=== PATIENT | male | born 1975 | race Caucasian/White ===

== ENCOUNTER → 2017-09-04 | Outpatient (CLI) | payer BC ==
[2017-09-04 12:44] LABS: CHOLESTEROL/HDL RATIO 3.6
[2017-09-06 01:43] LABS: CHLAMYDIA TRACH RNA*** NOT DETECTED (NOT DETECTED); GC (NEIS GONORRHOEAE)RNA** NOT DETECTED (NOT DETECTED)
== END | disposition home or self-care (01) ==
LOC: C.LABBFT 08:15
PROVIDERS: ATTEND Physician Assistant Medical
DX: Z11.3 Encounter for screening for infections with a predominantly sexual mode of transmission (principal); Z13.6 Encounter for screening for cardiovascular disorders